=== PATIENT | male | born 1985 | race Hispanic/Latino ===

== ENCOUNTER 2019-02-17 16:24 | Inpatient (IN) | payer BC, OTHER ==
[~2019-02-17] VITALS: Ht 165.1 cm; Wt 97.9 kg
[2019-02-17] MEDS ORDERED: MAG HYDROX/AL HYDROX/SIMETH ES 30 ML SUSP UDCUP ONE (17:04)
[2019-02-17] MEDS ORDERED: LIDOCAINE HCL 2% VISCOUS 15 ML UDCUP ONE (17:04)
[2019-02-17] MEDS ORDERED: FAMOTIDINE/PF 20 MG/2 ML VIAL IV ONE (17:05)
[2019-02-17 17:18] LABS: BASOPHILS % (AUTO) 0.6 % (0.0-5.0); EOSINOPHILS % (AUTO) 0.8 % (0.0-8.0); HEMATOCRIT 52.1 % (42-54); LYMPHOCYTES % (AUTO) 13.2 % (21.0-51.0); MEAN CORPUSCULAR HEMOGLOBIN 27.3 pg (27.0-33.0); MEAN CORPUSCULAR HGB CONC 33.4 g/dL (32.0-36.0); MEAN CORPUSCULAR VOLUME 81.6 fL (79-99); MONOCYTES % (AUTO) 4.5 % (3.0-13.0); NEUTROPHILS % (AUTO) 80.9 % (40.0-77.0); NUCLEATED RED BLOOD CELLS 0.1 % (0.0-0.19); PLATELET COUNT (AUTO) 334 K/uL (130-400); RED BLOOD CELL COUNT(AUTO) 6.38 MIL/uL (4.50-6.20); WHITE BLOOD COUNT (AUTO) 18.5 K/uL (4.8-10.8)
[2019-02-17 17:28] LABS: CREATININE 1.2 mg/dL (0.5-1.5); POTASSIUM 3.6 mmol/L (3.5-5.1)
[2019-02-17 17:33] LABS: ALBUMIN 4.1 g/dL (3.5-5.0); BILIRUBIN,DIRECT 0.1 mg/dL (0.0-0.3); BILIRUBIN,TOTAL 0.5 mg/dL (0.2-1.0); TOTAL PROTEIN, SERUM 7.9 g/dL (6.0-8.3)
[2019-02-17 17:48] LABS: APPEARANCE,URINE SLIGHTLY CLOUDY (CLEAR); BILIRUBIN,URINE Negative (NEGATIVE); COLOR,URINE Yellow (YELLOW); GLUCOSE, URINE (UA) Negative (NEGATIVE); KETONES,URINE Trace mg/dL (NEGATIVE); LEUKOCYTE ESTERASE ,URINE Negative (NEGATIVE); NITRATE,URINE Negative (NEGATIVE); OCCULT BLOOD,URINE Negative (NEGATIVE); PROTEIN,URINE POS 2+ mg/dL (NEGATIVE)
[2019-02-17 17:56] LABS: AMPHET/METH SCREEN,URINE NEGATIVE (NEGATIVE); BARBITURATE SCREEN, URINE NEGATIVE (NEGATIVE); BENZODIAZEPINES SCREEN,URINE NEGATIVE (NEGATIVE); CANNABINOID SCREEN,URINE NEGATIVE (NEGATIVE); COCAINE SCREEN,URINE NEGATIVE (NEGATIVE); OPIATE SCREEN,URINE NEGATIVE (NEGATIVE); PHENCYCLIDINE SCREEN,URINE NEGATIVE (NEGATIVE)
[2019-02-17 17:58] LABS: BACTERIA,URINE Few /HPF (None Seen); SQUAMOUS EPITHELIAL CELL,UR Rare /HPF (0-2)
[2019-02-17] MEDS ORDERED: IOHEXOL-350 75 ML VIAL IV ONE (18:56)
[2019-02-17] MEDS ORDERED: ONDANSETRON HCL 4 MG/2 ML VIAL ONE (18:56)
[2019-02-17] MEDS ORDERED: KETOROLAC TROMETHAMINE 30MG/ML ONE (18:56)
[2019-02-17] MEDS ORDERED: MORPHINE SULFATE 4 MG/1ML SYG ONE (19:37)
[2019-02-17] MEDS: LACTATED RINGERS 1000ML 1,000 ML IV SCH (20:15)
[2019-02-17] MEDS: LEVOFLOXACIN 500 MG/D5W 100 ML 100 ML IV SCH (20:30)
[2019-02-17 20:43] LABS: CHOLESTEROL 192 mg/dL (<200); HDL CHOLESTEROL 133 mg/dL (29-71); LDL DIRECT 124 mg/dL (0-99); TRIGLYCERIDES 165 mg/dL (30-200)
[2019-02-17 20:45] LABS: HEMOGLOBIN A1C 6.6 % (4.0-6.0)
[2019-02-17] MEDS: INSULIN HUMULIN R 100 UNIT/ML 3ML SQ SCH (21:00)
[2019-02-17] MEDS ORDERED: LACTATED RINGERS 1000ML 1,000 ML IV ONE (21:16)
[2019-02-17] MEDS ORDERED: LEVOFLOXACIN 500 MG/D5W 100 ML 100 ML ONE (21:18)
[2019-02-17 22:27] VITALS: BP 177/106
[2019-02-17] MEDS: METRONIDAZOLE 500MG/100ML BAG 100 ML IV SCH (23:19)
[2019-02-17] MEDS: HYDRALAZINE HCL 20 MG/ML VIAL IV PRN (23:19)
[2019-02-17] MEDS: MORPHINE SULFATE 4 MG/1ML SYG IV PRN (23:36)
[2019-02-18] MEDS: MORPHINE SULFATE 4 MG/1ML SYG IV PRN ×5 (03:33→22:23)
[2019-02-18] MEDS: LACTATED RINGERS 1000ML 1,000 ML IV SCH ×2 (03:33→09:25)
[2019-02-18 04:09] VITALS: BP 161/106
[2019-02-18 04:21] LABS: BASOPHILS % (AUTO) 0.1 % (0.0-5.0); HEMATOCRIT 52.5 % (42-54); LYMPHOCYTES % (AUTO) 4.5 % (21.0-51.0); MEAN CORPUSCULAR HEMOGLOBIN 28.3 pg (27.0-33.0); NEUTROPHILS % (AUTO) 89.4 % (40.0-77.0); NUCLEATED RED BLOOD CELLS 0.1 % (0.0-0.19); PLATELET COUNT (AUTO) 276 K/uL (130-400); RED BLOOD CELL COUNT(AUTO) 6.48 MIL/uL (4.50-6.20); RED CELL DISTRIBUTION WIDTH 13.5 % (11.0-15.5)
[2019-02-18 04:44] LABS: POTASSIUM 3.9 mmol/L (3.5-5.1)
[2019-02-18] MEDS: METRONIDAZOLE 500MG/100ML BAG 100 ML IV SCH ×3 (06:44→22:16)
[2019-02-18] MEDS: INSULIN HUMULIN R 100 UNIT/ML 3ML SQ SCH ×3 (06:45→17:51)
[2019-02-18 08:00] VITALS: BP 151/98
[2019-02-18] MEDS: PANTOPRAZOLE SODIUM 40 MG TABLET.DR PO SCH (09:00)
[2019-02-18] MEDS: ONDANSETRON HCL 4 MG/2 ML VIAL IV PRN ×2 (09:24→14:07)
[2019-02-18] MEDS: ENOXAPARIN SODIUM 40 MG/0.4 ML SYRINGE SQ SCH (09:25)
[2019-02-18 12:00] VITALS: BP 127/86
--- NOTE | 2019-02-18 15:16 | NUR ---
DCP CM met with pt discussed dc plans. Pt is independent, lives at home with girlfriend. Denies any equipments/services. Pt feels safe to go back home, still drives and works, girlfriend able to assist with transportation and needs as necessary. DC plan to home once stable. CM to cont to follow up. Addendum: 02/18/19 at 1523 by NESHA MULLINS LVN CM Amended: Links added.
[2019-02-18 16:00] VITALS: BP 164/89
[2019-02-18] MEDS: SODIUM CHLORIDE 0.9% 1000ML 1,000 ML IV SCH (18:08)
[2019-02-18] MEDS: METOPROLOL TARTRATE 1 MG/ML 5ML VIAL IV PRN (18:29)
[2019-02-18 19:53] VITALS: BP 114/80
[2019-02-18] MEDS: LEVOFLOXACIN 500 MG/D5W 100 ML 100 ML IV SCH (20:07)
[2019-02-18 23:53] VITALS: BP 119/68
[2019-02-19] MEDS: INSULIN HUMULIN R 100 UNIT/ML 3ML SQ SCH ×4 (00:55→18:00)
[2019-02-19] MEDS: SODIUM CHLORIDE 0.9% 1000ML 1,000 ML IV SCH ×4 (00:55→20:48)
[2019-02-19 04:00] VITALS: BP 144/78
[2019-02-19] MEDS: METOPROLOL TARTRATE 1 MG/ML 5ML VIAL IV PRN (04:04)
[2019-02-19 04:57] LABS: HEMATOCRIT 51.1 % (42-54); MEAN CORPUSCULAR HEMOGLOBIN 27.5 pg (27.0-33.0); MEAN CORPUSCULAR HGB CONC 33.2 g/dL (32.0-36.0); MEAN CORPUSCULAR VOLUME 82.7 fL (79-99); PLATELET COUNT (AUTO) 310 K/uL (130-400); RED BLOOD CELL COUNT(AUTO) 6.19 MIL/uL (4.50-6.20); RED CELL DISTRIBUTION WIDTH 13.9 % (11.0-15.5); WHITE BLOOD COUNT (AUTO) 21.3 K/uL (4.8-10.8)
[2019-02-19 05:12] LABS: ALBUMIN 2.7 g/dL (3.5-5.0); BILIRUBIN,TOTAL 1.2 mg/dL (0.2-1.0); CREATININE 1.8 mg/dL (0.5-1.5); MAGNESIUM 1.3 mg/dL (1.80-2.40); POTASSIUM 4.1 mmol/L (3.5-5.1); TOTAL PROTEIN, SERUM 6.3 g/dL (6.0-8.3)
[2019-02-19] MEDS: METRONIDAZOLE 500MG/100ML BAG 100 ML IV SCH ×3 (06:46→23:14)
[2019-02-19 07:00] VITALS: BP 130/77
[2019-02-19] MEDS: PANTOPRAZOLE SODIUM 40 MG TABLET.DR PO SCH (09:00)
[2019-02-19] MEDS: ENOXAPARIN SODIUM 40 MG/0.4 ML SYRINGE SQ SCH (09:34)
[2019-02-19 11:00] VITALS: BP 129/84
[2019-02-19] MEDS: MORPHINE SULFATE 4 MG/1ML SYG IV PRN ×3 (11:38→23:14)
[2019-02-19 16:00] VITALS: BP 149/60
[2019-02-19 19:00] VITALS: BP 125/77
[2019-02-19] MEDS ORDERED: MAGNESIUM 2GM PREMIX 50ML 50 ML IV PRN (20:30)
[2019-02-19] MEDS ORDERED: MAGNESIUM 2GM PREMIX 50ML 50 ML IV ONE (20:42)
[2019-02-19] MEDS ORDERED: METOPROLOL TARTRATE 1 MG/ML 5ML VIAL IV ONE (20:58)
[2019-02-19] MEDS ORDERED: METOPROLOL TARTRATE 1 MG/ML 5ML VIAL IV PRN (21:00)
[2019-02-19] MEDS: LEVOFLOXACIN 500 MG/D5W 100 ML 100 ML IV SCH (22:09)
[2019-02-19] MEDS ORDERED: METOPROLOL TARTRATE 1 MG/ML 5ML VIAL IV SCH (23:45)
[2019-02-20] VITALS (7 sets, daily range): BP systolic 120–153; BP diastolic 74–90
[2019-02-20] MEDS: INSULIN HUMULIN R 100 UNIT/ML 3ML SQ SCH ×4 (00:49→18:20)
[2019-02-20] MEDS ORDERED: DiphenhydrAMINE HCL 50 MG/ML VIAL IV SCH (02:00)
[2019-02-20] MEDS: SODIUM CHLORIDE 0.9% 1000ML 1,000 ML IV SCH ×4 (03:38→23:03)
[2019-02-20 04:43] LABS: HEMATOCRIT 41.8 % (42-54); MEAN CORPUSCULAR HEMOGLOBIN 28.2 pg (27.0-33.0); MEAN CORPUSCULAR HGB CONC 34.3 g/dL (32.0-36.0); MEAN CORPUSCULAR VOLUME 82.2 fL (79-99); PLATELET COUNT (AUTO) 221 K/uL (130-400); RED BLOOD CELL COUNT(AUTO) 5.09 MIL/uL (4.50-6.20); RED CELL DISTRIBUTION WIDTH 13.9 % (11.0-15.5); WHITE BLOOD COUNT (AUTO) 13.7 K/uL (4.8-10.8)
[2019-02-20 05:08] LABS: ALBUMIN 2.2 g/dL (3.5-5.0); BILIRUBIN,TOTAL 0.8 mg/dL (0.2-1.0); CREATININE 1.4 mg/dL (0.5-1.5); MAGNESIUM 2.4 mg/dL (1.80-2.40); PHOSPHORUS 1.6 mg/dL (2.5-4.9)
[2019-02-20] MEDS ORDERED: METOPROLOL TARTRATE 1 MG/ML 5ML VIAL IV SCH (06:00)
[2019-02-20] MEDS: METRONIDAZOLE 500MG/100ML BAG 100 ML IV SCH ×3 (06:59→22:17)
[2019-02-20] MEDS ORDERED: LIDOCAINE HCL 2% VISCOUS 15 ML UDCUP ONE (09:18)
[2019-02-20] MEDS ORDERED: DIATR MEGLU/DIATRIZOATE SODIUM 30 ML BOTTLE ONE ×3 (09:30→09:49)
[2019-02-20] MEDS: PANTOPRAZOLE 40 MG/VIAL IVP SCH (10:37)
[2019-02-20] MEDS: METOPROLOL TARTRATE 1 MG/ML 5ML VIAL IV SCH ×3 (10:37→20:38)
[2019-02-20] MEDS: ENOXAPARIN SODIUM 40 MG/0.4 ML SYRINGE SQ SCH (10:37)
[2019-02-20] MEDS: LEVOFLOXACIN 500 MG/D5W 100 ML 100 ML IV SCH (20:37)
[2019-02-21] MEDS: INSULIN HUMULIN R 100 UNIT/ML 3ML SQ SCH ×4 (01:54→18:42)
[2019-02-21] MEDS: METOPROLOL TARTRATE 1 MG/ML 5ML VIAL IV SCH ×4 (03:27→20:37)
[2019-02-21 03:52] VITALS: BP 147/89
[2019-02-21 05:13] LABS: HEMATOCRIT 40.3 % (42-54); MEAN CORPUSCULAR HEMOGLOBIN 27.7 pg (27.0-33.0); MEAN CORPUSCULAR VOLUME 81.4 fL (79-99); PLATELET COUNT (AUTO) 298 K/uL (130-400); RED BLOOD CELL COUNT(AUTO) 4.96 MIL/uL (4.50-6.20); WHITE BLOOD COUNT (AUTO) 12.9 K/uL (4.8-10.8)
[2019-02-21 05:20] LABS: BAND NEUTROPHILS % (MANUAL) 8 % (0-2); LYMPHOCYTES % (MANUAL) 10 % (22-44); MAN.DIFF COMMENT-IMPRESSION MANUAL DIFFERENTIAL; MONOCYTES % (MANUAL) 10 % (2-9); SEGMENTED NEUTROPHILS % 72 % (40-70)
[2019-02-21] MEDS: METRONIDAZOLE 500MG/100ML BAG 100 ML IV SCH ×3 (05:21→22:12)
[2019-02-21] MEDS: SODIUM CHLORIDE 0.9% 1000ML 1,000 ML IV SCH ×3 (05:24→19:14)
[2019-02-21 05:31] LABS: ALBUMIN 2.1 g/dL (3.5-5.0); BILIRUBIN,TOTAL 0.6 mg/dL (0.2-1.0); CREATININE 1.3 mg/dL (0.5-1.5); POTASSIUM 3.4 mmol/L (3.5-5.1)
[2019-02-21 08:00] VITALS: BP 154/88
[2019-02-21] MEDS: PANTOPRAZOLE 40 MG/VIAL IVP SCH (09:05)
[2019-02-21] MEDS: ENOXAPARIN SODIUM 40 MG/0.4 ML SYRINGE SQ SCH (09:06)
[2019-02-21 11:53] VITALS: BP 145/85
--- NOTE | 2019-02-21 13:06 | NUR ---
Nutrition intervention: Nutrition notification for TF recommendations postpyloric for acute pancreatitis. Pt with new dx of pancreatitis and DM. A1C 6.6. TF recommendations made by RD. MILLER pending diet education. Recommendations: Vital AF @ 50ml/hr, 160ml flush Q4H. Modify clear liquid diet therapy with CCD 75gm for appropriate diet placement. Consult RD as nutrition concerns arise. Addendum: 02/21/19 at [address] RD Amended: Links added.
[2019-02-21] MEDS: SIMETHICONE 80 MG TAB.CHEW PO SCH ×3 (13:47→20:37)
[2019-02-21 16:06] VITALS: BP 152/92
[2019-02-21] MEDS: HYDRALAZINE HCL 20 MG/ML VIAL IV PRN (18:47)
[2019-02-21 19:10] VITALS: BP 162/90
[2019-02-21] MEDS: LEVOFLOXACIN 500 MG/D5W 100 ML 100 ML IV SCH (20:36)
[2019-02-21 23:15] VITALS: BP 153/92
[2019-02-22] MEDS: SODIUM CHLORIDE 0.9% 1000ML 1,000 ML IV SCH ×3 (02:50→18:23)
[2019-02-22 03:05] VITALS: BP 155/86
[2019-02-22] MEDS: METOPROLOL TARTRATE 1 MG/ML 5ML VIAL IV SCH ×4 (04:01→20:28)
[2019-02-22 04:27] LABS: HEMATOCRIT 38.9 % (42-54); MEAN CORPUSCULAR HEMOGLOBIN 28.2 pg (27.0-33.0); MEAN CORPUSCULAR HGB CONC 34.9 g/dL (32.0-36.0); NUCLEATED RED BLOOD CELLS 0.2 % (0.0-0.19); PLATELET COUNT (AUTO) 245 K/uL (130-400); RED BLOOD CELL COUNT(AUTO) 4.81 MIL/uL (4.50-6.20); RED CELL DISTRIBUTION WIDTH 13.7 % (11.0-15.5); WHITE BLOOD COUNT (AUTO) 11.6 K/uL (4.8-10.8)
[2019-02-22 04:32] LABS: POTASSIUM 3.3 mmol/L (3.5-5.1)
[2019-02-22 04:50] LABS: BAND NEUTROPHILS % (MANUAL) 12 % (0-2); LYMPHOCYTES % (MANUAL) 11 % (22-44); MONOCYTES % (MANUAL) 8 % (2-9); SEGMENTED NEUTROPHILS % 69 % (40-70)
[2019-02-22 04:51] LABS: MAN.DIFF COMMENT-IMPRESSION MANUAL DIFFERENTIAL; PLATELET MORPHOLOGY COMMENT ADEQUATE
[2019-02-22] MEDS: INSULIN HUMULIN R 100 UNIT/ML 3ML SQ SCH ×5 (06:00→20:53)
[2019-02-22] MEDS: METRONIDAZOLE 500MG/100ML BAG 100 ML IV SCH ×3 (06:08→23:20)
[2019-02-22] MEDS ORDERED: POTASSIUM CHLORIDE 10MEQ/100ML 100 ML IV PRN (06:45)
[2019-02-22] MEDS ORDERED: LIDOCAINE HCL-MPF 1% 2ML VIAL IVP PRN (06:45)
[2019-02-22] MEDS ORDERED: POTASSIUM CHLORIDE 20 MEQ ERTAB PO PRN (06:45)
[2019-02-22] MEDS ORDERED: POTASSIUM CHLORIDE 10% ELIXIR 20 MEQ/15 ML UDCUP PO PRN (06:45)
[2019-02-22 07:00] VITALS: BP 156/88
[2019-02-22] MEDS: PANTOPRAZOLE 40 MG/VIAL IVP SCH (10:54)
[2019-02-22] MEDS: SIMETHICONE 80 MG TAB.CHEW PO SCH ×4 (10:55→20:28)
[2019-02-22] MEDS: ENOXAPARIN SODIUM 40 MG/0.4 ML SYRINGE SQ SCH (10:57)
[2019-02-22 11:00] VITALS: BP 168/89
[2019-02-22] MEDS ORDERED: LACTULOSE 20 GM/30 ML UDCUP PO PRN (11:45)
--- NOTE | 2019-02-22 15:10 | NUR ---
DIABETES/PANCREATITIS DIET EDUCATION: Printed materials provided on diabetes and pancreatitis diet education. RD explained low fat diet and low Carb and portion control is recommended to adequately meet both diet therapies. Pt verbalize understanding. Pt with a few nutritional questions, all questions answered by ANGELA. Pt encourage to request RD consult if nutrition concerns arise. Addendum: 02/22/19 at [address] RD Amended: Links added.
[2019-02-22 16:00] VITALS: BP 160/91
[2019-02-22 19:00] VITALS: BP 180/87
[2019-02-22] MEDS: METOCLOPRAMIDE 10 MG/2 ML VIAL IVP SCH (20:30)
[2019-02-22] MEDS: LEVOFLOXACIN 500 MG/D5W 100 ML 100 ML IV SCH (21:17)
[2019-02-23] VITALS: BP 128/72
[2019-02-23] MEDS: METOPROLOL TARTRATE 1 MG/ML 5ML VIAL IV SCH ×3 (02:58→15:00)
[2019-02-23 03:05] VITALS: BP 127/75
[2019-02-23] MEDS: METRONIDAZOLE 500MG/100ML BAG 100 ML IV SCH ×2 (05:18→14:00)
[2019-02-23] MEDS: INSULIN HUMULIN R 100 UNIT/ML 3ML SQ SCH ×2 (06:30→11:30)
[2019-02-23 08:00] VITALS: BP 158/89
[2019-02-23] MEDS ORDERED: PANTOPRAZOLE SODIUM 40 MG TABLET.DR PO SCH (08:18)
[2019-02-23] MEDS: METOCLOPRAMIDE 10 MG/2 ML VIAL IVP SCH (09:29)
[2019-02-23] MEDS: SIMETHICONE 80 MG TAB.CHEW PO SCH ×2 (09:29→15:18)
[2019-02-23] MEDS: ENOXAPARIN SODIUM 40 MG/0.4 ML SYRINGE SQ SCH (09:36)
[2019-02-23 12:00] VITALS: BP 160/83
--- NOTE | 2019-02-23 12:00 | NUR ---
SITUP STRAIGHT IN BED . INSTRUCTION GIVEN REGARDING THE REMOVAL OF THE DUBBHOFF TUBE, . INSTRUCTED PT TO TAKE A DEEP BREATH HOLD AND DUBBHOFF TUBE DC . SLOWLY AND NOTED TUBE TIP INTACT . DENIES ANY DISCOMFORT. STATED THAT HE FELT BETTER NOW . . ACTIVE BOWEL SOUNDS . AND HAVING BM TODAY NO NAUSEA. . .
[2019-02-23] MEDS ORDERED: METO25TA6 PO (14:36)
[2019-02-23] MEDS ORDERED: METOPROLOL TARTRATE 25 MG TAB PO SCH (14:45)
[2019-02-23 15:00] VITALS: BP 160/83
--- NOTE | 2019-02-23 15:50 | NUR ---
DISCHARGE , SUMMARY REVIEW WITH PT .REGARDING FOLLOWUP WITH HIS PRIVATE DR. DIABETIC TEACHING DONE. ALSO . SL TO HIS [facility] DC WITH NO REDNESS TO SITE. SM PRESSURE DRSG IN PLACE , DENIES ANY DIS COMFORT
== END 2019-02-23 15:47 | disposition home or self-care (01) | DRG 438 ==
LOC: EDH 16:24 → EDHIP 16:25 → 3AH 21:53
PROVIDERS: ADMIT Internal Medicine; ATTEND Internal Medicine
DX: K85.20 Alcohol induced acute pancreatitis without necrosis or infection (principal); R65.11 Systemic inflammatory response syndrome (SIRS) of non-infectious origin with acute organ dysfunction; E66.01 Morbid (severe) obesity due to excess calories; B96.81 Helicobacter pylori [H. pylori] as the cause of diseases classified elsewhere; E11.65 Type 2 diabetes mellitus with hyperglycemia; E86.1 Hypovolemia; Z68.35 Body mass index [BMI] 35.0-35.9, adult; E87.6 Hypokalemia; I50.9 Heart failure, unspecified; Z71.41 Alcohol abuse counseling and surveillance of alcoholic
CPT/HCPCS: 36415; 43752; 71045; 74018; 74177; 80048; 80053; 80061; 80076; 80305; 81001; 82150; 82948; 83036; 83690; 83735; 84100; 85025; 85027; 86140; 86677; 93005; C9113; G0378; J0360; J1200; J1650; J1815; J1885; J1956; J2270; J2405; J2765; J3475; J3490; J7030; J7120; Q9963; Q9967